=== PATIENT | male | born 2005 | race Caucasian/White ===

== ENCOUNTER 2024-04-12 15:03 | Emergency (ER) | payer OTHER ==
[~2024-04-12] VITALS: Ht 170.2 cm; Wt 63.6 kg
[2024-04-12 17:22] LABS: Amphetamine Screen, Urine Neg (NEGATIVE)
[2024-04-12 17:23] LABS: Barbiturate Scree,Urine Neg (NEGATIVE); Benzodiazephine Screen, Urine Neg (NEGATIVE); Cannabinoid Screen, Urine Pos (NEGATIVE); Cocaine Screen, Urine Neg (NEGATIVE); Opiate Scree,Urine Neg (NEGATIVE); Phencyclidine Screen, Urine Neg (NEGATIVE)
[2024-04-12 19:54] VITALS: BP 137/86; PULSE 74; RESP 17; O2SAT 98
== END 2024-04-12 19:55 | disposition home or self-care (01) ==
LOC: ER 15:03
DX: F98.9 Unspecified behavioral and emotional disorders with onset usually occurring in childhood and adolescence (principal); R45.6 Violent behavior; F17.210 Nicotine dependence, cigarettes, uncomplicated; F12.10 Cannabis abuse, uncomplicated; Z79.899 Other long term (current) drug therapy
CPT/HCPCS: 36415; 80307; 80320

== ENCOUNTER 2024-12-21 10:15 | Emergency (ER) | payer OTHER, MEDICAID ==
[2024-12-21] MEDS ORDERED: CEPH250C PO (11:02)
--- NOTE | 2024-12-21 11:09 | ED.PDOC ---
History of Present Illness HPI Comments 19-year-old male who comes in with chief complaint of redness and soreness to the throat. The patient states that the right side is worse than the left. The patient is unsure how long the symptoms have been going on. He did state that approximately two weeks he was working on a car and some break fluid acci dentally went into his throat. The patient denies any other complaints at this time. Chief Complaint: Sore Throat Time Seen by MD: 10:53 Reviewed Notes: Nurses Notes, Medications, Allergies (No allergies to medications) Allergies: Coded Allergies: NO KNOWN ALLERGIES (Unverified , 04/12/24) Home Meds Active Scripts Cephalexin (KEFLEX CAPSULE) 250 Mg Cp, 1 CAP PO QID, #28 CAP Prov:SHENG SILVEIRA MD 12/21/24 Information Source: Patient Mode of Arrival: Ambulatory Severity: Mild Timing: Weeks Duration: Since onset Prehospital treatment: None Associated signs and symptoms No nausea vomiting or diarrhea. The patient denies any fever or chills Past Medical History PAST MEDICAL HISTORY: Denies Surgical History: Denies all surgeries Family History Family History (Other): Psychiatric illness Social History Smoker: Cigarettes Alcohol: Occasionally Drugs: Marijuana Lives In: Home Constitutional: denies: chills, diaphoresis, fatigue, fever, malaise, sweats, weakness, others EENTM: reports: throat pain; denies: blurred vision, double vision, ear bleeding, ear discharge, ear drainage, ear pain, ear ringing, eye pain, eye redness, hearing loss, mouth pain, mouth swelling, nasal discharge, nose bleeding, nose congestion, nose pain, photophobia, tearing, throat swelling, voice changes, others Respiratory: denies: cough, hemoptysis, orthopnea, SOB at rest, shortness of breath, SOB with excertion, stridor, wheezing, others Cardiovascular: denies: chest pain, dizzy spells, diaphoresis, Dyspnea on exertion, edema, irregular heart beat, left arm pain, lightheadedness, palpitations, PND, syncope, others Gastrointestinal: denies: abdomen distended, abdominal pain, blood streaked bowels, constipated, diarrhea, dysphagia, difficulty swallowing, hematemesis, melena, nausea, poor appetite, poor fluid intake, rectal bleeding, rectal pain, vomiting, others Genitourinary: denies: burning, dysuria, flank pain, frequency, hematuria, incontinence, penile discharge, penile sore, pain, testicle pain, testicle swelling, urgency, others Neurological: denies: dizziness, fainting, headache, left sided numbness, left sided weakness, numbness, paresthesia, pre-existing deficit, right sided numbness, right sided weakness, seizure, speech problems, tingling, tremors, weakness, others Musculoskeletal: denies: back pain, gout, joint pain, joint swelling, muscle pain, muscle stiffness, neck pain, others Integumetry: denies: bruises, change in color, change in hair/nails, dryness, laceration, lesions, lumps, rash, wounds, others Allergic/Immunocompromised: denies: Difficulty Healing, Frequent Infections, Hives, Itching, others Hematologic/Lymphatic: denies: anemia, blood clots, easy bleeding, easy bruising, swollen glands, others Endocrine: denies: excessive hunger, excessive sweating, excessive thirst, excessive urination, flushing, intolerance to cold, intolerance to heat, unexplained weight gain, unexplained weight loss, others Psychiatric: denies: anxiety, bipolar disorder, depression, hopeless, panic disorder, schizophrenia, sleepless, suicidal, others Physical Exam General Appearance: No Apparent Distress HEENT: Normal ENT Inspection, Pharyngeal Erythema, TMs Normal Neck: Full Range of Motion, Non-Tender, Normal, Normal Inspection Respiratory: Chest Non-Tender, Lungs Clear, No Accessory Muscle Use, No Respiratory Distress, Normal Breath Sounds Cardiovascular: No Edema, No JVD, No Murmur, No Gallop, Normal Peripheral Pulses, Regular Rate/Rhythm Breast Exam: Deferred Gastrointestinal: No Organomegaly, Non Tender, No Pulsatile Mass, Normal Bowel Sounds, Soft Genitalia: Deferred Pelvic: Deferred Rectal: Deferred Extremities: No calf tenderness, Normal capillary refill, Normal inspection, N ormal range of motion, Non-tender, No pedal edema Musculoskeletal : Apperance: Normal Neurologic: Alert, manager paid II-XII nml as Tested, No Motor Deficits, Normal Affect, Normal Mood, No Sensory Deficits Cerebellar Function: Normal Reflexes: Normal Skin: Dry, Normal Color, Warm Lymphatic: No Adenopathy Was a procedure done? Was a procedure done?: No Differential Dx Considerations may include: Pharyngitis, tonsillitis, pneumonia X-Ray, Labs, Meds, VS Vital Signs Date Time Temp Pulse Resp B/P (MAP) Pulse Ox O2 Delivery O2 Flow Rate FiO2 12/21/24 10:31 98.5 90 20 139/92 (108) 98 At this time the patient was being discharged The patient will follow up with the primary care doctor The patient will return to the emergency department's condition worsens. Time of 1ST Reevaluation: 11:08 Reevaluation 1ST: Unchanged Patient Education/Counseling: Diagnosis, Treatment, Prognosis, Need For Follow Up Family Education/Counseling: No Family Present Departure 1 Departure Time of Disposition: 11:08 Impression: Primary Impression: Acute pharyngitis Qualified Codes: J02.9 - Acute pharyngitis, unspecified Disposition: 01 HOME / SELF CARE / HOMELESS Condition: Fair e-Prescriptions Cephalexin (KEFLEX CAPSULE) 250 Mg Cp 1 CAP PO QID, #28 CAP Prov: SHENG SILVEIRA MD 12/21/24 Discharged With: Self Critical Care Note Critical Care Time?: No Stability Stability form required: No Heart Score Heart Score: Heart Score Response (Comments) Value History N/A 0 EKG N/A 0 Age N/A 0 Risk Factors N/A 0 Troponin N/A 0 Total 0 SHENG SILVEIRA MD Dec 21, 2024 11:09
[2024-12-21 11:17] VITALS: BP 127/93; PULSE 86; RESP 16; TEMP 98.7; O2SAT 97
== END 2024-12-21 11:27 | disposition home or self-care (01) ==
LOC: ER 10:15
DX: J02.9 Acute pharyngitis, unspecified (principal); F17.210 Nicotine dependence, cigarettes, uncomplicated; F12.90 Cannabis use, unspecified, uncomplicated

== ENCOUNTER 2025-06-25 19:31 | Emergency (ER) | payer OTHER, MEDICAID ==
[~2025-06-25] VITALS: Ht 170.2 cm; Wt 67.6 kg
[~2025-06-25 19:31] MED LIST: CEPH250C PO
[2025-06-25] MEDS ORDERED: ACYC400T16 PO (21:23)
--- NOTE | 2025-06-25 21:24 | ED.PDOC ---
History of Present Illness(SKN HPI Comments s C/C: PATIENT STATES THAT HE "HAS A DISEASE" AND NEEDS TO BE CHECKED OUT. PATIENT HAS SORE ON INNER BOTTOM LIP. ALL VSS. Chief Complaint: Wound Check Time Seen by MD: 20:21 History of Present Illness: Nurses Notes, Medications, Allergies Allergies: Coded Allergies: NO KNOWN ALLERGIES (Unverified , 04/12/24) Home Meds Active Scripts Cephalexin (KEFLEX CAPSULE) 250 Mg Cp, 1 CAP PO QID, #28 CAP Prov:SHENG SILVEIRA MD 12/21/24 Discontinued Scripts Acyclovir (ZOVIRAX TABLET) 400 Mg Tb, 1 TAB PO TID for 7 Days, #21 TAB Prov:ABBIE HUTTON 06/25/25 Information Source: Patient Mode of Arrival: Ambulatory Past Medical History PAST MEDICAL HISTORY: Denies Surgical History: Denies all surgeries Family History Family History: Reviewed,noncontributory to illness Family History (Other): Psychiatric illness Social History Smoker: Cigarettes Alcohol: Occasionally Drugs: Marijuana Lives In: Home All Other Systems: Reviewed and Negative (see hpi) Physical Exam General Appearance: No Apparent Distress, Normal HEENT: Normal ENT Inspection, Pharynx Normal, TMs Normal Neck: Full Range of Motion, Non-Tender, Normal, Normal Inspection Respiratory: Chest Non-Tender, Lungs Clear, No Accessory Muscle Use, No Respiratory Distress, Normal Breath Sounds Cardiovascular: No Edema, No JVD, No Murmur, No Gallop, Normal Peripheral Pulses, Regular Rate/Rhythm Breast Exam: Deferred Gastrointestinal: No Organomegaly, Non Tender, No Pulsatile Mass, Normal Bowel Sounds, Soft Genitalia: Deferred Pelvic: Deferred Rectal: Deferred Extremities: No calf tenderness, Normal capillary refill, Normal inspection, Normal range of motion, Non-tender, No pedal edema Musculoskeletal : Apperance: Normal Neurologic: Alert, supervisor mold shop II-XII nml as Tested, No Motor Deficits, Normal Affect, Normal Mood, No Sensory Deficits Cerebellar Function: Normal Reflexes: Normal Skin: Dry, Normal Color, Warm Lymphatic: No Adenopathy Was a procedure done? Was a procedure done?: No Differential Diagnosis (INTG) Differential Diagnosis: Abscess, AIDS/HIV, Urticaria X-Ray, Labs, Meds, VS Vital Signs Date Time Temp Pulse Resp B/P (MAP) Pulse Ox O2 Delivery O2 Flow Rate FiO2 06/25/25 21:34 18 95 Room Air 06/25/25 21:34 98.3 87 18 127/66 (86) 95 98.3 06/25/25 19:34 97.5 78 16 126/77 98 97.5 X-Ray, Labs, Meds, VS Comment Advised to rest increase p.o. fluids with electrolytes [id number] Tylenol or Motrin as needed for pain or fever per labeled dosing instructions. Advised take medications as prescribed side effects discussed. follow up with PCP in 2-3 days advised on ER return precautions. Time of 1ST Reevaluation: 20:25 Reevaluation 1ST: Unchanged Time of 2ND Reevaluation: 21:21 Reevaluation 2ND: Improved Patient Education/Counseling: Diagnosis, Treatment, Prognosis, Need For Follow Up Family Education/Counseling: No Family Present SEPSIS Sepsis Screen Date sepsis recognized/suspect: Jun 25, 2025 Time Sepsis recognized/suspect: 1935 Recent Procedure: No On Antibiotic Therapy: No Respiratory Rate >20: No Heart Rate >90: No Temp<36 C (96.8 F) or >38.3 C: No SBP <90 or MAP <65 mmHG: No New Acute Mental Status Change: No Is the patient on CPAP, BIPAP,: No Vital Signs Date Time Temp Pulse Resp B/P (MAP) Pulse Ox O2 Delivery O2 Flow Rate FiO2 06/25/25 21:34 18 95 Room Air 06/25/25 21:34 98.3 87 18 127/66 (86) 95 98.3 06/25/25 19:34 97.5 78 16 126/77 98 97.5 Departure 1 Departure Time of Disposition: 21:21 Impression: Primary Impression: Oral herpes simplex infection Disposition: 01 HOME / SELF CARE / HOMELESS Condition: Stable Discharged With: Self Critical Care Note Critical Care Time?: No Stability Stability form required: ABBIE Quezada Jun 25, 2025 21:24
[2025-06-25 21:34] VITALS: BP 127/66; PULSE 87; RESP 18; TEMP 98.3; O2SAT 95
== END 2025-06-25 21:34 | disposition home or self-care (01) ==
LOC: ER 19:31
DX: B00.2 Herpesviral gingivostomatitis and pharyngotonsillitis (principal); F17.210 Nicotine dependence, cigarettes, uncomplicated; Z79.899 Other long term (current) drug therapy